=== PATIENT | male | born 1955 | race Caucasian/White ===

== ENCOUNTER 2024-11-29 17:44 | Outpatient (REF) | payer OTHER, SELFPAY | END 2024-11-29 17:45 | disposition home or self-care (01) | LOC: LBN 17:44 | PROVIDERS: Visit Provider Registered Nurse | DX: N39.0 Urinary tract infection, site not specified (principal) | CPT/HCPCS: 87077; 87086; 87186 ==

== ENCOUNTER 2025-01-13 18:15 | Outpatient (REF) | payer OTHER, SELFPAY ==
[2025-01-13 21:00] LABS: Glucose Negative (Negative)
[2025-01-13 21:16] LABS: RBC Negative HPF (0-2); WBC >50 HPF (0-5)
[2025-01-13 21:17] LABS: C & S Indicated? Yes
== END 2025-01-13 18:16 | disposition home or self-care (01) ==
LOC: LBN 18:15
PROVIDERS: Visit Provider Nurse Practitioner Family
DX: R30.0 Dysuria (principal)
CPT/HCPCS: 81003; 81015; 87086